=== PATIENT | male | born 1970 | race Caucasian/White ===

== ENCOUNTER 2024-09-01 18:25 | Emergency (ER) | payer MEDICARE, OTHER ==
[2024-09-01] MEDS ORDERED: Ketorolac Tromethamine 30 MG (1 mL) VIAL ONE (19:06)
== END 2024-09-01 19:30 | disposition home or self-care (01) ==
LOC: CSHERS 18:25
DX: M54.50 Low back pain, unspecified (principal); I10 Essential (primary) hypertension; E78.5 Hyperlipidemia, unspecified; F17.210 Nicotine dependence, cigarettes, uncomplicated; F17.290 Nicotine dependence, other tobacco product, uncomplicated; Z86.73 Personal history of transient ischemic attack (TIA), and cerebral infarction without residual deficits; Z79.82 Long term (current) use of aspirin; Z79.899 Other long term (current) drug therapy
CPT/HCPCS: J1885

== ENCOUNTER 2025-05-16 16:43 | Observation (INO) | payer OTHER ==
[2025-05-16] MEDS ORDERED: hydrALAZINE 20 MG/ML VIAL ONE (17:02)
[2025-05-16 17:38] LABS: #Basophils 0.06 10x3/uL (0.0-0.2); #Eosinophils 0.32 10x3/uL (0.0-0.5); #Monocytes 0.56 10x3/uL (0.0-1.1); #Neutrophils 5.85 10x3/uL (1.5-8.4); %Basophils 0.6 % (0.0-2.0); %Eosinophils 3.4 % (0.0-6.0); %Lymphocytes 27.4 % (18.0-47.0); %Monocytes 6.0 % (0.0-10.0); %Neutrophils 62.3 % (40.0-75.0); Hematocrit 47.5 % (38.8-50.0); Hemoglobin 16.3 g/dL (13.5-17.5); Mean Corpuscular Hemoglobin 29.1 pg (27.0-33.0); Mean Corpuscular Volume 84.8 fL (81.2-95.1); Platelet Count 212 10x3/uL (150-450); Red Blood Cell (RBC) Count 5.60 10x6/uL (4.32-5.72); White Blood Cell (WBC) Count 9.39 10x3/uL (3.5-10.5)
[2025-05-16 17:51] LABS: INR-International Normal Ratio 1.0; PTT 25.3 sec (22.0-33.0); Prothrombin Time 10.6 sec (9.5-12.1)
[2025-05-16 17:55] LABS: Acetaminophen Less than 10 mcg/mL (Less than 10); Lipase 44 U/L (8-78); Salicylate Less than 8.0 mg/dL (Less than 8.0)
[2025-05-16 17:56] LABS: ALT (SGPT) 19 U/L (Less than 45); AST (SGOT) 12 U/L (11-34); Albumin 3.9 g/dL (3.1-4.5); Alkaline Phosphatase 106 U/L (40-110); Anion Gap 12 mmol/L (10-20); BUN (Urea Nitrogen) 16 mg/dL (8.4-25.7); Bilirubin, Total 0.4 mg/dL (0.3-1.2); Calc. Creatinine Clearance 0 mL/min (70-130); Calcium 9.3 mg/dL (7.8-10.44); Carbon Dioxide 26 mmol/L (22-29); Chloride 99 mmol/L (98-107); Globulin 2.6 g/dL (2.4-3.5); Potassium 4.8 mmol/L (3.5-5.1); Sodium 132 mmol/L (136-145)
[2025-05-16 17:57] LABS: Troponin I Less than 0.010 ng/mL (< 0.028)
[2025-05-16 18:05] LABS: Glucose 448 mg/dL (70-105)
[2025-05-16 19:22] LABS: Glucose, Urine (Dipstick) >=1000 mg/dL (Negative); Leukocyte Negative (Negative); Protein, Urine (Dipstick) Negative (Neg-Trace); Specific Gravity, Urine 1.015 (1.005-1.030)
[2025-05-16 19:30] LABS: Cocaine Metabolite Screen Negative (Negative); THC/Cannabinoid Screen Negative (Negative); Tricyclic Screen Negative (Negative)
[2025-05-16 19:35] LABS: Bacteria/HPF Rare-Few HPF (None Seen); CAUTI Indications for Culture Pelvic or flank pain; RBC/HPF None Seen HPF (0-3); Urine Culture Reflex No No; WBC/HPF None Seen HPF (0-3)
[2025-05-16] MEDS ORDERED: Guaifenesin DM 100-10/5 ML UDCUP PO PRN (19:51)
[2025-05-16] MEDS ORDERED: Glucagon 1 MG/ML KIT IM PRN (19:51)
[2025-05-16] MEDS ORDERED: Senokot S 8.6-50 MG TAB PO PRN (19:51)
[2025-05-16] MEDS ORDERED: Dextrose 50% Abboject 50 ML SYRINGE SLOW IVP PRN (19:51)
[2025-05-16] MEDS ORDERED: Acetaminophen 325 MG TAB PO PRN (19:51)
[2025-05-16] MEDS ORDERED: Ondansetron PF 4 MG/2 ML Vial IVP PRN (19:51)
[2025-05-16] MEDS ORDERED: Calcium Carbonate 500 MG ChewTAB PO PRN (19:51)
[2025-05-16 20:32] VITALS: BMI 33.6
[2025-05-16] MEDS ORDERED: Lisinopril 20 MG TAB PO SCH (21:00)
[2025-05-16] MEDS: NIFEdipine XL 30 MG ER.TAB PO SCH (21:24)
[2025-05-16] MEDS: Rosuvastatin 10 MG TAB PO SCH (21:25)
[2025-05-16] MEDS: Lisinopril 10 MG TAB PO SCH (21:25)
[2025-05-16 22:00] LABS: Troponin I Less than 0.010 ng/mL (< 0.028)
[2025-05-16] MEDS: metFORMIN 500 MG TAB PO SCH (23:19)
[2025-05-17] MEDS ORDERED: Glucagon 1 MG/ML KIT IM PRN (00:17)
[2025-05-17] MEDS ORDERED: Dextrose 50% Abboject 50 ML SYRINGE SLOW IVP PRN (00:17)
[2025-05-17 00:36] LABS: Troponin I Less than 0.010 ng/mL (< 0.028)
[2025-05-17 05:42] LABS: Anion Gap 12 mmol/L (10-20); BUN (Urea Nitrogen) 14 mg/dL (8.4-25.7); Calc. Creatinine Clearance 194 mL/min (70-130); Calcium 9.2 mg/dL (7.8-10.44); Carbon Dioxide 25 mmol/L (22-29); Cardiac Risk 5.9 (Less than 4.5); Chloride 103 mmol/L (98-107); Cholesterol 205 mg/dl (< 200 Desired); Glucose 216 mg/dL (70-105); HDL Cholesterol 35 mg/dL (>60 Neg Risk); LDL Cholesterol, Calculated 125 mg/dL; Potassium 3.8 mmol/L (3.5-5.1); Sodium 136 mmol/L (136-145); Triglycerides 224 mg/dL (Less than 150)
[2025-05-17] MEDS: Aspirin 81 mg Enteric Coated Tablet PO SCH (08:23)
[2025-05-17] MEDS: Lisinopril 20 MG TAB PO SCH (08:23)
[2025-05-17] MEDS: metFORMIN 500 MG TAB PO SCH (08:24)
[2025-05-17] MEDS ORDERED: Iopamidol 370 76% 100 ML VIAL ONE (08:34)
[2025-05-17] MEDS ORDERED: Lisinopril 20 MG TAB PO SCH (09:00)
[2025-05-17 12:44] VITALS: BP 117/69; TEMP 97.8
== END 2025-05-17 14:55 | disposition home or self-care (01) ==
LOC: CSHERS 16:43 → CSHTELE 19:28
PROVIDERS: ADMIT Student in an Organized Health Care Education/Training Program; ATTEND Student in an Organized Health Care Education/Training Program
DX: I16.1 Hypertensive emergency (principal); I10 Essential (primary) hypertension; I65.21 Occlusion and stenosis of right carotid artery; E11.9 Type 2 diabetes mellitus without complications; E78.5 Hyperlipidemia, unspecified; F41.9 Anxiety disorder, unspecified; F33.9 Major depressive disorder, recurrent, unspecified; F43.10 Post-traumatic stress disorder, unspecified; F17.210 Nicotine dependence, cigarettes, uncomplicated; Z90.89 Acquired absence of other organs; Z79.82 Long term (current) use of aspirin; Z79.84 Long term (current) use of oral hypoglycemic drugs; Z79.85 Long-term (current) use of injectable non-insulin antidiabetic drugs; Z79.899 Other long term (current) drug therapy
CPT/HCPCS: 70450; 71045; 80306; 80307; 81001; 83690; 83880; 84484 ×3; 85610; 85730; 93005; J0360; J1815; J2060; 36415; 36416; 70496; 70498; 70551; 80048; 80053; 80061; 83036; 84443; 85025; 93880; 96374; 96375